=== PATIENT | female | born 1990 | race African-American/Black ===

== ENCOUNTER 2016-09-05 13:43 | Emergency (ER) | payer OTHER ==
[~2016-09-05 13:43] MED LIST: CALNTAB PO; MACR100C2 PO
--- NOTE | 2016-09-05 14:05 | PD ---
HPI Date Seen: Sep 05, 2016 (Beni Hood MD R1) Travel History International Travel<30 Days: No Contact w/Intl Traveler<30Days: No Known Affected Area: No (Beni Hood MD R1) History of Present Illness HPI Patient is a 26 year old with no prior care presents to OB ED with reports of LOF attila. 1 hour ago. She was seen here at [facility] on 04/27/2016, had a TVUS and was diagnosed with an IUP at that time dating at attila. 6 weeks. She was also treated at that time for asymptomatic bacteriuria urine culture growing E. coli she was given one dose of IV Rocephin and sent home with a 5- day course of Macrobid. She reports +FM. Reports irregular contractions. Denies urinary symptoms. She also does not have a primary care physician. She is unsure of her LMP, she believes it to be sometime in January of last year. Para: 2 : 3 (Beni Hood MD R1) History Past Medical History Medical History: Denies Significant Hx (Beni Hood MD R1) Obstetric History Obstetric History Per EMR, prior CSx1 in 2012, 39 weeks gestation, emergent performed due to bradycardia 2nd ending in 07/22/2015 delivered at term (Beni Hood MD R1) Past Surgical History Narrative Surgical Hx of CSx1 Cholecystectomy 02/2015 (Beni Hood MD R1) Family History Family History: Negative (Beni Hood MD) Social History Alcohol Use: No Tobacco Use: No Substance Abuse: Yes (Admits to marijuana use almost daily throughout ) (Beni Hood MD R1) Allergies-Medications (Allergen,Severity, Reaction): Coded Allergies: No Known Allergies (Verified , 04/26/16) Home Meds Active Scripts Nitrofurantoin Monohydrate Macrocrystals (Macrobid)100 Mg [id number] Mg PO BID 5 Days Ref 0 Prov:En Burton MD 04/27/16 Vitamin (Calna)1 Tab Tab1 Tab PO DAILY 90 Days Ref 3 Prov:En Burton MD 04/27/16 Review of Systems Except as stated in HPI: all other systems reviewed are Neg (Beni Hood MD R1) Physical Exam Narrative GENERAL: Well-nourished, well-developed patient. SKIN: Warm and dry. HEAD: Normocephalic and atraumatic. EYES: No scleral icterus. No injection or drainage. ENT: No nasal drainage noted. Mucous membranes pink. Airway patent. NECK: Supple, trachea midline. No JVD. CARDIOVASCULAR: Regular rate and rhythm without murmurs, gallops, or rubs. RESPIRATORY: Breath sounds equal bilaterally. No accessory muscle use. ABDOMEN/GI: Abdomen soft, non-tender, bowel sounds present, no rebound, no guarding Gravid to 24 weeks size GENITOURINARY: External Genitalia: [-] Cervix: [-] Dilatation: [-] Effacement: [-] Station: [-] Presentation: [-] Membranes: [-] Uterine Contractions: [-] FHT's: 10-minute strip reviewed Category: I Baseline: 150s Reactive: yes Variability: mod Decels: none EXTREMITIES: No cyanosis or edema. BACK: Nontender without obvious deformity. No CVA tenderness. NEUROLOGICAL: Awake and alert. Motor and sensory grossly within normal limits. Normal speech. (Beni Hood MD R1) Data Data Vital Signs Reviewed: Yes (Beni Hood MD R1) [facility] Medical Record Reviewed: Yes Plan Patient is a 26 year old with no prior care presented with report of LOF now found to be at 24/1 weeks gestation based on ultrasound obtained today. 1. IUP - Ultrasound obtained at OB diagnostics showing cervical length of 3.5 cm, posterior placenta, efw of 700 gm, GA at 24/1 weeks with an MARELY of 12/25/2016 - Category I tracing - No contractions on tocometer - Cervix is closed - Amnisure negative - UA shows moderate leukocyte esterase, negative nitrite, few bacteria, 30 protein, trace ketones, neg glucose, culture not indicated - Urine toxicology screen is positive for THC, extended screen still pending - Wet prep negative - GC & chlamydia obtained - labs ordered, pending - Patient is instructed to follow up at [facility] for continued care sdw Dr. Myers (Beni Hood MD R1) Attending Attestation The exam, history, and the medical decision-making described in the above note were completed with the assistance of the resident provider. I reviewed and agree with the findings presented. I attest that I had a [id number] encounter with the patient on the same day, and personally performed and documented my assessment and findings in the medical record. (Sylwia Myers MD) Diagnosis Diagnosis: Primary Impression: Intrauterine Disposition: 01 DISCHARGE HOME Condition: Stable Patient Instructions: General Instructions Beni Hood MD R1 Sep 05, 2016 14:05 Sylwia Myers MD Sep 05, 2016 16:54
[2016-09-05 14:20] VITALS: BP 122/63; PULSE 99
[2016-09-05 14:23] VITALS: RESP 20
[2016-09-05 14:30] VITALS: TEMP 97.9
[2016-09-05 15:43] LABS: BACTERIA, URINE FEW /hpf; BLOOD, URINE NEG (NEG); COMMENT (UR) CULT NOT INDICATED; CULTURE IF INDICATED CULT NOT INDICATED; GLUCOSE,URINE NEG (NEG); KETONE, URINE TRACE mg/dL (NEG); MUCUS URINE MOD /lpf (OCC); NITRITE,URINE NEG (NEG); PH, URINE 6.5 (5.0-8.5); SQUAMOUS EPITHELIAL CELL URINE 20 /hpf (0-5); URINE COLOR YELLOW (YELLW/STRAW)
[2016-09-05 15:46] LABS: AMPHETAMINE, URINE NEG (NEG); BARBITURATES, URINE NEG (NEG); COCAINE, URINE NEG (NEG)
[2016-09-05 16:55] LABS: HEMATOCRIT 31.8 % (35.0-46.0); MEAN CELL VOLUME 82.9 FL (80.0-100.0); MEAN CORPUSCULAR HEMOGLOBIN 27.8 PG (27.0-34.0); MEAN CORPUSCULAR HGB CONC 33.5 % (32.0-36.0); PLATELET COUNT 200 TH/MM3 (150-450); RED BLOOD COUNT 3.84 MIL/MM3 (4.00-5.30); RED CELL DISTRIBUTION WIDTH 15.4 % (11.6-17.2); REVIEW FLAG FINAL; WHITE BLOOD COUNT 8.6 TH/MM3 (4.0-11.0)
[2016-09-05 17:04] LABS: BICARBONATE 23.2 MEQ/L (21.0-32.0); POTASSIUM 3.5 MEQ/L (3.5-5.1)
[2016-09-05 17:24] LABS: RUBELLA IGG ANTIBODY 12.7 IU/mL (10.0-500.0); RUBELLA STATUS IMMUNE (IMMUNE)
[2016-09-05 18:53] LABS: CHLAMYDIA PCR DETECTED (NOT DETECT); NEISSERIA PCR NOT DETECTED (NOT DETECT)
[2016-09-06 09:44] LABS: RAPID PLASMA REAGIN SCREEN NON-REACTIVE (NON-REACTVE)
[2016-09-11 12:57] LABS: ECSTASY (MDMA) UR NEG (NEG); HEROIN (6-ACETYLMORPHINE) UR NEG (NEG); OBMETHADONE UR NEG (NEG); PHENCYCLIDINE URINE NEG (NEG)
[2016-09-11 12:58] LABS: BATH SALTS (MDPV) UR NEG (NEG); K2 SPICE UR NEG (NEG); OXYCODONE (PERCODAN) NEG (NEG)
== END 2016-09-05 17:08 | disposition home or self-care (01) ==
LOC: HOBED 13:43
DX: O26.899 Other specified pregnancy related conditions, unspecified trimester (principal); N85.8 Other specified noninflammatory disorders of uterus; F12.10 Cannabis abuse, uncomplicated
CPT/HCPCS: 76805; 80048; 80074; 80307; 81001; 84112; 85027; 86592; 86703; 86762; 87210; 87491; 87591; 99284; G0481

== ENCOUNTER 2016-11-13 14:56 | Emergency (ER) | payer OTHER ==
[2016-11-13] VITALS (20 sets, daily range): BP systolic 101; BP diastolic 66; PULSE 98–126; RESP 16; TEMP 98.5
[~2016-11-13] VITALS: Ht 152.4 cm; Wt 68.0 kg
--- NOTE | 2016-11-13 15:08 | PD ---
HPI Chief Complaint Contractions. Date Seen: Nov 13, 2016 Travel History International Travel<30 Days: No Contact w/Intl Traveler<30Days: No History of Present Illness HPI Patient is a 26 year old at 34-0/7 weeks gestation based on second trimester US who presents today with contractions. Contractions started at 5: 30 this morning and have become progressively more frequent and strong. She now notes contractions every 1-3 minutes lasting 30 seconds. She denies any vaginal bleeding or discharge. No gush or leaking of fluid. Positive movement. No care, but she was seen in the [facility] ED twice during this . She has a history of marijuana use and states that she last smoke marijuana yesterday. History Past Medical History Medical History: Denies Significant Hx Obstetric History Obstetric History s/p x 1 and x 1 Past Surgical History Narrative Surgical Cholecystectomy Family History Family History: Negative Social History Alcohol Use: No Tobacco Use: No Substance Abuse: Yes (patient denies, but UDS from August significant for marijuana use) Allergies-Medications (Allergen,Severity, Reaction): Coded Allergies: No Known Allergies (Verified , 04/26/16) Home Meds Discontinued Scripts Nitrofurantoin Monohydrate Macrocrystals (Macrobid)100 Mg [id number] Mg PO BID 5 Days Ref 0 Prov:En Burton MD 04/27/16 Vitamin (Calna)1 Tab Tab1 Tab PO DAILY 90 Days Ref 3 Prov:En Burton MD 04/27/16 Review of Systems Except as stated in HPI: all other systems reviewed are Neg General / Constitutional: No: Fever, Chills Eyes: No: Visual changes HENT: No: Headaches Cardiovascular: No: Chest Pain or Discomfort Respiratory: No: Short of Breath Gastrointestinal: Abdominal Pain Genitourinary: Pelvic Pain, No: Discharge, Vaginal Bleeding Musculoskeletal: No: Edema Neurologic: No: Headache Psychiatric: Substance Abuse Physical Exam Narrative GENERAL: Well-nourished, well-developed patient. SKIN: Warm and dry. HEAD: Normocephalic and atraumatic. EYES: No scleral icterus. No injection or drainage. ENT: No nasal drainage noted. Mucous membranes pink. Airway patent. NECK: Supple, trachea midline. No JVD. CARDIOVASCULAR: Regular rate and rhythm without murmurs, gallops, or rubs. RESPIRATORY: Breath sounds equal bilaterally. No accessory muscle use. ABDOMEN/GI: Abdomen soft, non-tender, bowel sounds present, no rebound, no guarding Gravid to 34 weeks size GENITOURINARY: External Genitalia: intact and normal in appearance BUS glands: normal Cervix: midposition Dilatation: 2 Effacement: 50 Station: -3 Presentation: vertex Membranes: intact Uterine Contractions: q4-6min FHT's: Category: I Baseline: 155 Reactive: + Variability: moderate Decels: none EXTREMITIES: No cyanosis or edema. BACK: Nontender without obvious deformity. No CVA tenderness. NEUROLOGICAL: Awake and alert. Motor and sensory grossly within normal limits. Normal speech. Data Data Vital Signs Reviewed: Yes Orders Vital Signs (Adult) .ON ADMISSION (11/13/16 15:05) ^ Labor Status (11/13/16 15:05) ^ Non Stress Test (11/13/16 15:05) ^ Hydration (11/13/16 15:05) MDM Medical Record Reviewed: Yes Narrative Course / MDM 26 year old at 34-0/7 weeks gestation. 1. IUP- Category I tracing, reassuring. 2. contractions- monitor toco/fht. Tocolysis with Procardia ( Terbutaline contraindicated with maternal tachycardia) and IV fluids. 3. No care- labs drawn during August ED visit. Patient was positive for Chlamydia in August, but states she was never treated. Will treat with Rocephin and Azithromycin and repeat urine GC and chlamydia PCR. 4. Somnolence- Vitals stable. Obtain CBC, CMP, UA, UDS. dw Dr. Massey and Dr. Ruth Gaitan R1 Addendum: UA significant for UTI, will treat with Bactrim DS BID x 3 days. CBC significant for Hgb 10.4, will treat with Ferrous Fumarate 325mg PO BID UDS, CMP wnl Contractions have subsided with Procardia. Patient will be discharged to home. Follow-up with the [facility], Dr. Jesus. Diagnosis Diagnosis: Primary Impression: Acute cystitis during in third trimester Additional Impression: contractions Disposition: DISCHARGE HOME Condition: Stable Scripts Ferrous Fumarate 324 Mg [id number] Mg PO BID #60 TAB Ref 3 Prov:Yisel Jesus MD R2 11/13/16 Sulfamethoxazole-Trimethoprim 800-160 Mg Tab1 Tab PO BID #6 TAB Ref 0 Prov:Yisel Jesus MD R2 11/13/16 Yisel Jesus MD R2 Nov 13, 2016 15:08
[2016-11-13] MEDS ORDERED: SODIUM CHLORIDE 0.9% FLUSH 10 ML FLUSH IV FLUSH PRN (15:30)
[2016-11-13] MEDS ORDERED: TERBUTALINE INJ 1 MG/ML AMP SQ PRN (15:30)
[2016-11-13] MEDS ORDERED: LACTATED RINGER'S 1000 ML INJ 1,000 ML IV SCH (15:45)
[2016-11-13] MEDS ORDERED: cefTRIAXone 250 MG VIAL IM ONE (16:00)
[2016-11-13] MEDS: NIFEdipine 10 MG CAP PO SCH ×4 (16:00→17:00)
[2016-11-13] MEDS ORDERED: AZITHROMYCIN PWD FOR SUSP 1 GM PACKET PO ONE (16:00)
[2016-11-13] MEDS ORDERED: LIDOCAINE HCL 1% PF 5 ML AMPULE ONE (16:04)
[2016-11-13 16:07] LABS: AUTOMATED NEUTROPHIL # 6.3 TH/MM3 (1.8-7.7); BASOPHIL % 0.5 % (0.0-2.0); EOSINOPHIL % 0.6 % (0.0-4.0); HEMATOCRIT 31.6 % (35.0-46.0); HEMO FLAGS DIFF FINAL; LYMPH % 12.5 % (9.0-44.0); LYMPHOCYTE # 1.1 TH/MM3 (1.0-4.8); MEAN CELL VOLUME 80.4 FL (80.0-100.0); MEAN CORPUSCULAR HEMOGLOBIN 26.4 PG (27.0-34.0); MEAN CORPUSCULAR HGB CONC 32.8 % (32.0-36.0); MONO % 13.8 % (0.0-8.0); NEUT % 72.6 % (16.0-70.0); PLATELET COUNT 185 TH/MM3 (150-450); RED BLOOD COUNT 3.93 MIL/MM3 (4.00-5.30); RED CELL DISTRIBUTION WIDTH 14.3 % (11.6-17.2); WHITE BLOOD COUNT 8.6 TH/MM3 (4.0-11.0)
[2016-11-13 16:27] LABS: BACTERIA, URINE MOD /hpf; BLOOD, URINE NEG (NEG); GLUCOSE,URINE NEG (NEG); HYALINE CAST, URINE 1 /lpf (RARE); KETONE, URINE 150 mg/dL (NEG); MUCUS URINE MOD /lpf (OCC); NITRITE,URINE NEG (NEG); SQUAMOUS EPITHELIAL CELL URINE 19 /hpf (0-5); URINE COLOR YELLOW (YELLW/STRAW)
[2016-11-13 16:31] LABS: AMPHETAMINE, URINE NEG (NEG); BARBITURATES, URINE NEG (NEG); COCAINE, URINE NEG (NEG); COMMENT (UR) CATH-CULTURE IND; CULTURE IF INDICATED CATH CULTURE IND
[2016-11-13 16:32] LABS: ALT (GPT) 15 U/L (10-53); ANION GAP 12 MEQ/L (5-15); AST (GOT) 19 U/L (15-37); BICARBONATE 22.4 MEQ/L (21.0-32.0); BLOOD UREA NITROGEN 7 MG/DL (7-18); CHLORIDE 103 MEQ/L (98-107); GLOMERULAR FILTRATION RATE 149 ML/MIN (>89); POTASSIUM 3.8 MEQ/L (3.5-5.1); SODIUM (NA) 137 MEQ/L (136-145)
[2016-11-13 16:35] LABS: ALKALINE PHOSPHATASE 189 U/L (45-117); TOTAL BILIRUBIN ADULT 0.3 MG/DL (0.2-1.0)
[2016-11-13] MEDS ORDERED: SULF1TAB23 PO (16:50)
[2016-11-13] MEDS ORDERED: FERR324T8 PO (16:50)
[2016-11-13] MEDS ORDERED: ONDANSETRON ODT 4 MG TAB PO ONE (17:45)
[2016-11-13 17:55] LABS: CHLAMYDIA PCR DETECTED (NOT DETECT); NEISSERIA PCR NOT DETECTED (NOT DETECT)
[2016-11-13] MEDS ORDERED: PROCHLORPERAZINE INJ 10 MG/2 ML VIAL IM ONE (18:00)
[2016-11-13] MEDS ORDERED: SODIUM CHLORIDE 0.9% FLUSH 10 ML FLUSH IV FLUSH SCH (21:00)
[2016-11-19 10:19] LABS: BATH SALTS (MDPV) UR NEG (NEG); ECSTASY (MDMA) UR NEG (NEG); GABAPENTIN UR NEG (NEG); HEROIN (6-ACETYLMORPHINE) UR NEG (NEG); HYDROMORPHONE U NEG (NEG); K2 SPICE UR NEG (NEG); OBMETHADONE UR NEG (NEG); OXYCODONE (PERCODAN) NEG (NEG); PHENCYCLIDINE URINE NEG (NEG)
== END 2016-11-13 18:18 | disposition home or self-care (01) ==
LOC: HOBED 14:56
DX: O23.13 Infections of bladder in pregnancy, third trimester (principal); O62.9 Abnormality of forces of labor, unspecified; O09.33 Supervision of pregnancy with insufficient antenatal care, third trimester; Z3A.34 34 weeks gestation of pregnancy
CPT/HCPCS: 59025; 80053; 80307; 81001; 85025; 86850; 86900; 86901; 87086; 87491; 87591; 96360; 96372; 99284; G0481; J0696; J0780; J7120

== ENCOUNTER 2016-11-29 18:23 | Emergency (ER) | payer OTHER ==
[~2016-11-29 18:23] MED LIST changes: -CALNTAB PO; +FERR324T8 PO; -MACR100C2 PO; +SULF1TAB23 PO
[2016-11-29] MEDS ORDERED: LACTATED RINGER'S 1000 ML INJ 1,000 ML IV SCH (19:08)
[2016-11-29] MEDS ORDERED: TERBUTALINE INJ 1 MG/ML AMP SQ PRN (19:15)
[2016-11-29] MEDS ORDERED: ONDANSETRON HCL 4 MG/2 ML VIAL IV ONE (19:15)
--- NOTE | 2016-11-29 19:23 | PD ---
HPI Chief Complaint Contraction pain Date Seen: Nov 29, 2016 Travel History International Travel<30 Days: No Contact w/Intl Traveler<30Days: No Known Affected Area: No History of Present Illness HPI The patient is 26-year-old black female previous at 36 weeks by 24 week ultrasound who has very limited care presenting brought in by the ambulance for contractions. She denies bleeding or ruptured membranes. Baby is active. heart rate tracing is reactive. And she is wayne irregularly. We have the copy of the 24 week ultrasound done at the end of August here and also that time labs drawn which was also normal limits her chlamydia was positive and that was treated. Para: 2 : 3 History Obstetric History Obstetric History 1 and 1 delivery She has no care with this baby only the ER visits and ultrasound done through [facility] Past Surgical History Narrative Surgical 1 Social History Alcohol Use: No Tobacco Use: No Substance Abuse: No Allergies-Medications (Allergen,Severity, Reaction): Coded Allergies: No Known Allergies (Verified , 04/26/16) Home Meds Active Scripts Ferrous Fumarate 324 Mg [id number] Mg PO BID #60 TAB Ref 3 Prov:Yisel Jesus MD R2 11/13/16 Sulfamethoxazole-Trimethoprim 800-160 Mg Tab1 Tab PO BID #6 TAB Ref 0 Prov:Yisel Jesus MD R2 11/13/16 Review of Systems General / Constitutional: No: Fever, Weight Gain, Chills, Other Eyes: No: Diploplia, Blurred Vision, Visual changes, Pain, Photophobia HENT: No: Headaches, Vertigo, Lightheadedness Cardiovascular: No: Irregular Rhythm, Chest Pain or Discomfort, Palpitations, Tachycardia, Syncope, Varicosities, Edema, Cyanosis Respiratory: No: Cough, Short of Breath, Other Gastrointestinal: Abdominal Pain, No: Nausea, Vomiting, Diarrhea Genitourinary: No: Decreased Urinary Output, Oliguria Musculoskeletal: No: Limited ROM, Weakness, Cramping, Edema, Pain Skin: No Rash, No Itching, No Dryness, No Lumps, No Change in Pigmentation, No Change in Nails, No Alopecia, No Lesions Neurologic: No: Weakness, Dizziness, Syncope, Focal Abnormalities, Coordination Problem, Headache, Slurred Speech, Seizures Psychiatric: No: Depression, Suicidal Ideations, Homicidal Ideation Endocrine: No: Heat Intolerance, Cold Intolerance, Polydipsia, Polyuria, Other Physical Exam Narrative GENERAL: Well-nourished, well-developed patient. SKIN: Warm and dry. HEAD: Normocephalic and atraumatic. EYES: No scleral icterus. No injection or drainage. ENT: No nasal drainage noted. Mucous membranes pink. Airway patent. NECK: Supple, trachea midline. No JVD. CARDIOVASCULAR: Regular rate and rhythm without murmurs, gallops, or rubs. RESPIRATORY: Breath sounds equal bilaterally. No accessory muscle use. BREASTS: Bilateral exam showed no masses , no retractions, no nipple discharge. ABDOMEN/GI: Abdomen soft, non-tender, bowel sounds present, no rebound, no guarding Gravid to [36-] weeks size Fundal Height: [35-] GENITOURINARY: External Genitalia: intact and normal in appearance BUS glands: [-] Cervix: [-] Dilatation: [1-2-] Effacement: [-70] Station: [-3] Presentation: [-vtx] Membranes: [intact ] Uterine Contractions: [Irregular-] FHT's: Category: [1-] Baseline: [133-] Reactive: [-yes] Variability: [-mod] Decels: [-0] EXTREMITIES: No cyanosis or edema. BACK: Nontender without obvious deformity. No CVA tenderness. NEUROLOGICAL: Awake and alert. Motor and sensory grossly within normal limits. Five out of 5 muscle strength in all muscle groups. Normal speech. Data Data Orders Vital Signs (Adult) .ON ADMISSION (11/29/16 19:08) ^ Labor Status (11/29/16 19:08) Urinalysis - C+S If Indicated (11/29/16 19:08) Lactated Ringer's 1000 Ml Inj (Lr 1000 M (11/29/16 19:08) Ondansetron Inj (Zofran Inj) (11/29/16 19:15) Terbutaline Inj (Brethine Inj) (11/29/16 19:15) Fentanyl Inj (Fentanyl Inj) (11/29/16 19:15) MDM Interpretation(s) This patient is 26-year-old black female 36 weeks previous and previous who presents combining of contractions. She was brought in by EMS and has been on the monitor here she's having irregular contractions. Her membranes are intact she's had no bleeding cervix is 1-/ -3 Plan Plan to give patient a liter of IV fluid subcutaneous terbutaline and 1 dose of fentanyl IV to see if this can tocolyse what little contractions we are seeing. She is encouraged at home to increase bedrest use Tylenol liberally drink plenty of fluids and use a heating pad or hot bath for comfort's. She is planning a repeat delivery Diagnosis Diagnosis: Primary Impression: contractions Additional Impression: Previous section Disposition: 01 DISCHARGE HOME Condition: Stable Dainel Massey II, MD Nov 29, 2016 19:23
[2016-11-29 19:35] LABS: BLOOD, URINE NEG (NEG); CALCIUM OXALATE CRYSTALS,URINE MANY /hpf; COMMENT (UR) CULT NOT INDICATED; CULTURE IF INDICATED CULT NOT INDICATED; GLUCOSE,URINE NEG (NEG); KETONE, URINE TRACE mg/dL (NEG); MUCUS URINE MOD /lpf (OCC); NITRITE,URINE NEG (NEG); SQUAMOUS EPITHELIAL CELL URINE 6 /hpf (0-5); URINE COLOR YELLOW (YELLW/STRAW)
[2016-11-29 20:19] VITALS: RESP 18
== END 2016-11-29 21:00 | disposition home or self-care (01) ==
LOC: HOBED 18:23
DX: O60.03 Preterm labor without delivery, third trimester (principal); O34.219 Maternal care for unspecified type scar from previous cesarean delivery; Z3A.36 36 weeks gestation of pregnancy
CPT/HCPCS: 81001; 96372; 96374; 96375; 99284; J2405; J3010; J3105; J7120

== ENCOUNTER 2016-12-21 11:05 | Inpatient (IN) | payer OTHER ==
[2016-12-21] VITALS (11 sets, daily range): BP systolic 99–123; BP diastolic 68–81; PULSE 56–78; RESP 16–20; TEMP 97.6–97.9
[2016-12-21] MEDS ORDERED: LACTATED RINGER'S 1000 ML INJ 1,000 ML IV PRN (11:17)
[2016-12-21] MEDS ORDERED: LACTATED RINGER'S 1000 ML INJ 1,000 ML IV SCH (11:17)
[2016-12-21] MEDS ORDERED: SODIUM CHLORID 0.9% 500 ML INJ 500 ML IV PRN (11:30)
[2016-12-21] MEDS ORDERED: OXYTOCIN 30 UNITS-500ML PREMIX 500 ML IV ONE (11:30)
[2016-12-21] MEDS ORDERED: CITRIC ACID-SODIUM CITRATE LIQ 30 ML UDC PO SCH (11:30)
[2016-12-21] MEDS ORDERED: LIDOCAINE HCL 1% 50 ML VIAL INFIL PRN (11:30)
[2016-12-21] MEDS ORDERED: LIDOCAINE HCL 1% 50 ML VIAL I-DERMAL PRN (11:30)
[2016-12-21] MEDS ORDERED: MINERAL OIL 10 ML VIAL TOPICAL PRN (11:30)
[2016-12-21] MEDS ORDERED: SODIUM CHLOR 0.9% 1000 ML INJ 1,000 ML IV PRN (11:37)
[2016-12-21 11:46] LABS: AUTOMATED NEUTROPHIL # 5.1 TH/MM3 (1.8-7.7); BASOPHIL % 0.4 % (0.0-2.0); EOSINOPHIL % 0.5 % (0.0-4.0); HEMATOCRIT 36.1 % (35.0-46.0); HEMO FLAGS DIFF FINAL; LYMPHOCYTE # 2.5 TH/MM3 (1.0-4.8); MEAN CELL VOLUME 80.2 FL (80.0-100.0); MEAN CORPUSCULAR HEMOGLOBIN 24.5 PG (27.0-34.0); MEAN CORPUSCULAR HGB CONC 30.6 % (32.0-36.0); MONO % 8.7 % (0.0-8.0); NEUT % 60.4 % (16.0-70.0); PLATELET COUNT 202 TH/MM3 (150-450); RED BLOOD COUNT 4.51 MIL/MM3 (4.00-5.30); RED CELL DISTRIBUTION WIDTH 16.5 % (11.6-17.2); WHITE BLOOD COUNT 8.5 TH/MM3 (4.0-11.0)
[2016-12-21 11:57] LABS: BACTERIA, URINE OCC /hpf; BLOOD, URINE SMALL (NEG); COMMENT (UR) CULTURE INDICATED; CULTURE IF INDICATED CULTURE INDICATED; GLUCOSE,URINE NEG (NEG); KETONE, URINE NEG (NEG); MUCUS URINE FEW /lpf (OCC); NITRITE,URINE NEG (NEG); SQUAMOUS EPITHELIAL CELL URINE 4 /hpf (0-5); URINE COLOR YELLOW (YELLW/STRAW)
--- NOTE | 2016-12-21 12:16 | HHI.HP ---
History & Physical H&P HPI Chief Complaint Labor Date Seen: Dec 21, 2016 Travel History International Travel<30 Days: No Contact w/Intl Traveler<30Days: No Known Affected Area: No History of Present Illness HPI 26YO black female previous at 39 weeks by 24 week ultrasound who has very limited care presenting brought in by the ambulance for contractions and 9 cm dilated. She denies bleeding or ruptured membranes. Baby is active. heart rate tracing is reactive. And she is wayne irregularly. We have the copy of the 24 week ultrasound done at the end of August here and also that time labs drawn which was also normal limits her chlamydia was positive and that was treated. Para: 2 : 3 History Obstetric History Obstetric History 1 and 1 delivery She has no care with this baby only the ER visits and ultrasound done through [facility] Past Surgical History Narrative Surgical 1 Social History Alcohol Use: No Tobacco Use: No Substance Abuse: No Allergies-Medications (Allergen,Severity, Reaction): Coded Allergies: No Known Allergies (Verified , 04/26/16) Home Meds Active Scripts Ferrous Fumarate 324 Mg [id number] Mg PO BID #60 TAB Ref 3 Prov:Yisel Jesus MD R2 11/13/16 Review of Systems General / Constitutional: No: Fever, Weight Gain, Chills, Other; yes: pain and contractions Eyes: No: Diploplia, Blurred Vision, Visual changes, Pain, Photophobia HENT: No: Headaches, Vertigo, Lightheadedness Cardiovascular: No: Irregular Rhythm, Chest Pain or Discomfort, Palpitations, Tachycardia, Syncope, Varicosities, Edema, Cyanosis Respiratory: No: Cough, Short of Breath, Other Gastrointestinal: Abdominal Pain, No: Nausea, Vomiting, Diarrhea Genitourinary: No: Decreased Urinary Output, Oliguria Musculoskeletal: No: Limited ROM, Weakness, Cramping, Edema, Pain Skin: No Rash, No Itching, No Dryness, No Lumps, No Change in Pigmentation, No Change in Nails, No Alopecia, No Lesions Neurologic: No: Weakness, Dizziness, Syncope, Focal Abnormalities, Coordination Problem, Headache, Slurred Speech, Seizures Psychiatric: No: Depression, Suicidal Ideations, Homicidal Ideation Endocrine: No: Heat Intolerance, Cold Intolerance, Polydipsia, Polyuria, Other Physical Exam Narrative GENERAL: Well-nourished, well-developed patient. SKIN: Warm and dry. HEAD: Normocephalic and atraumatic. EYES: No scleral icterus. No injection or drainage. ENT: No nasal drainage noted. Mucous membranes pink. Airway patent. NECK: Supple, trachea midline. CARDIOVASCULAR: RRR without murmur, gallop, or rub. RESPIRATORY: Breath sounds equal bilaterally w/no increased WOB. No accessory muscle use. ABDOMEN/GI: Abdomen soft, non-tender, bowel sounds present, no rebound, no guarding Gravid to [36-] weeks size Fundal Height: [35-] GENITOURINARY: External Genitalia: intact and normal in appearance Cervix: [anterior] Dilatation: 8-9 Effacement: 100 Station: 0 Presentation: vertex Membranes: intact Uterine Contractions: Irregular- FHT's: Category: [1-] Baseline: [135 with accels to 155] Reactive: [-yes] Variability: [-mod] Decels: [-0] EXTREMITIES: No cyanosis or edema. NEUROLOGICAL: Awake and alert. Motor and sensory grossly within normal limits. Normal speech. Data Data Orders Vital Signs (Adult) .ON ADMISSION (12/21/16 11:07) ^ Labor Status (12/21/16 11:07) ^ Non Stress Test (12/21/16 11:07) Vital Signs (Adult) .ON ADMISSION (12/21/16 11:11) ^ Labor Status (12/21/16 11:11) Urinalysis - C+S If Indicated (12/21/16 11:11) Gc And Chlamydia Pcr (12/21/16 11:11) Group B Strep Pcr (Rapid) (12/21/16 11:11) Admit To Inpatient (12/21/16 ) Vital Signs (Adult) .Per protocol (12/21/16 11:17) Activity Oob Ad Jena (12/21/16 11:17) Heart (12/21/16 11:17) Amnioinfusion (12/21/16 11:17) Urinary Catheter Management .ONCE (12/21/16 11:17) Diet Liquid (12/21/16 Lunch) Lactated Ringer's 1000 Ml Inj (Lr 1000 M (12/21/16 11:17) Lactated Ringer's 1000 Ml Inj (Lr 1000 M (12/21/16 11:17) Sodium Chlorid 0.9% 500 Ml Inj (Ns 500 M (12/21/16 11:30) Sodium Chlor 0.9% 1000 Ml Inj (Ns 1000 M (12/21/16 11:37) Lidocaine 1% Inj (50 Ml) (Xylocaine 1% I (12/21/16 11:30) Citric Acid-Sodium Citrate Liq (Bicitra (12/21/16 11:30) Fentanyl Inj (Fentanyl Inj) (12/21/16 11:30) Fentanyl Inj (Fentanyl Inj) (12/21/16 11:30) Complete Blood Count With Diff (12/21/16 11:17) Hold Clot (12/21/16 11:17) Abo/Rh Blood Type (12/21/16 11:) Resp Oxygen Non Rebreathe Mask (12/21/16 ) ^ Epidural / Intrathecal Infus (12/21/16 11:17) Oxytocin 30 Units-500ml Premix (Pitocin (12/21/16 11:30) Lidocaine 1% Inj (50 Ml) (Xylocaine 1% I (12/21/16 11:30) Light Mineral Oil (Muri-Lube Oil) (12/21/16 11:30) Inpatient Certification (12/21/16 ) A/P Interpretation(s) 26YO black female 39 weeks previous and previous who presents in labor with contractions and 8-9cm dilated/100%/0station/vertex and limited PNC. She was brought in by EMS and has been on the monitor here she's having irregular contractions. Her membranes are intact. She is planning a repeat delivery 1. IUP - Category 1 tracing - Irregular contractions 3-5 minutes apart - Admit for L&D - IVF - Pain control - Trial of labor -Treated for Chlamydia previously - GC and Chlamydia PCR, UA (Francois Mcdonough MD R1) H&P 26 yo @ 39w3d by 24 week US (6 weeks us documented viability but no EDC given). No care this . Patient was seen in the [facility] several times and labs and US were obtained. She was treated for 2 UTIs this and Chlamydia twice with documented treatment. She had a previous C- section and . She presented to the [facility] by EMS today with c/o onset of UC at 7am. No ROM, LOF, VB. +FM. Upon evaluation she was 8-9cm with bulging membranes. An US confirmed vertex presentation. FHT were CAT I. She desires a BRITTANEY. The risks of uterine rupture were reviewed including emergency c- section, bleeding, additional surgery, injury. A rapid GBS was obtained and a JOSE DE JESUS for chlamydia. UA sent. Patient was seen and evaluated with Dr. Coyne and Dr. Mcdonough. (Myra Delaney MD) Francois Mcdonough MD R1 Dec 21, 2016 12:16 Myra Delnaey MD Dec 21, 2016 12:29
[2016-12-21] MEDS ORDERED: SODIUM CHLORIDE 0.9% FLUSH 10 ML FLUSH IV FLUSH PRN (12:30)
[2016-12-21] MEDS ORDERED: WITCH HAZEL 50%/GLYCERIN 12.5% 40 PAD JAR TOPICAL PRN (12:30)
[2016-12-21] MEDS ORDERED: ONDANSETRON ODT 4 MG TAB PO PRN (12:30)
[2016-12-21] MEDS ORDERED: ACETAMINOPHEN 325 MG TAB PO PRN (12:30)
[2016-12-21] MEDS ORDERED: SODIUM CHLORIDE 0.9% FLUSH 10 ML FLUSH IV FLUSH SCH (12:30)
[2016-12-21] MEDS ORDERED: ALUMINUM/MAGNESIUM/SIMETH 30 ML CUP PO PRN (12:30)
[2016-12-21] MEDS ORDERED: DOCUSATE SODIUM 50 MG/SENNA 8.6 MG TAB PO PRN (12:30)
[2016-12-21] MEDS ORDERED: ZOLPIDEM TARTRATE 5 MG TAB PO PRN (12:30)
[2016-12-21] MEDS ORDERED: BENZOCAINE 20% TOPICAL SPRAY 60 ML CAN TOPICAL PRN (12:30)
--- NOTE | 2016-12-21 12:32 | PD.OB.DELI ---
Delivery Date: Dec 21, 2016 Anesthesia: None Episiotomy: None Vaginal Delivery: Normal Presentation: Occiput anterior Nuchal Cord: None Delayed cord clamping (45 sec): Yes Infant: Female One Minute : 9 Five Minute : 9 Weight: 2825g Placenta: Spontaneous delivery Laceration: No lacerations Additional Information 26 yo @ 39w3d. Limited care. Presented at 8-9cm. Desired BRITTANEY. CAT I FHT. SROM with clear fluid at time of delivery. Uncomplicated . Placenta spontaneous and intact, grossly normal but small, sent to pathology. No lacerations. EBL 100ml. Myra Delaney MD Dec 21, 2016 12:32
[2016-12-21 13:35] LABS: GROUP B STREP PCR NEGATIVE (NEGATIVE)
[2016-12-21 14:24] LABS: CHLAMYDIA PCR NOT DETECTED (NOT DETECT); NEISSERIA PCR NOT DETECTED (NOT DETECT)
[2016-12-21] MEDS ORDERED: DIPHTH/TETANUS/ACEL PERTUSSIS (BOOSTER) 0.5 ML VIAL/PFS IM ONE (16:00)
[2016-12-21] MEDS ORDERED: MEASLES, MUMPS, RUBELLA VACCINE 0.5 ML VIAL SQ ONE (16:00)
[2016-12-21] MEDS: NITROFURANTOIN MONOHYD MACROCR 100 MG CAP PO SCH (18:29)
[2016-12-21] MEDS: IBUPROFEN 600 MG TAB PO PRN (23:33)
[2016-12-21 23:56] LABS: AMPHETAMINE, URINE NEG (NEG); BARBITURATES, URINE NEG (NEG); COCAINE, URINE NEG (NEG)
[2016-12-22 08:00] VITALS: BP 121/74; PULSE 53; RESP 17; TEMP 98.2
--- NOTE | 2016-12-22 08:44 | HHI.OB ---
Subjective Post Day: 1 Remarks 26 year old female s/p NVD at 39 wks gestation, PPD 1. AFVSS. Patient reports she is feeling well. Bleeding is decreasing and pain is well- controlled. She is breast and formula feeding and bonding well with baby. Ambulating without difficulties. She is tolerating a diet without nausea or vomiting. She has not had a bowel movement. She has passed gas. Denies chest pain, dysuria, shortness of breath, or calf pain. (Pepito Coyne MD R1) Objective Vitals/I&O Vital Signs Date Time Temp Pulse Resp B/P Pulse Ox O2 Delivery O2 Flow Rate FiO2 12/22/16 08:00 98.2 53 17 121/74 12/21/16 19:30 60 117/76 12/21/16 19:30 97.6 18 12/21/16 14:45 97.9 57 18 110/68 12/21/16 13:55 20 12/21/16 13:45 56 116/79 12/21/16 13:30 65 123/78 12/21/16 13:21 18 12/21/16 13:15 68 122/81 12/21/16 13:00 61 117/71 12/21/16 12:45 73 107/75 12/21/16 12:40 16 12/21/16 12:31 78 99/72 Objective Remarks GENERAL: Well-nourished, well-developed patient. CARDIOVASCULAR: Regular rate and rhythm without murmurs, gallops, or rubs. RESPIRATORY: Breath sounds equal bilaterally. No accessory muscle use. ABDOMEN/GI: Abdomen soft, non-tender. Fundus: Firm, non-tender at umbilicus. GENITOURINARY: Light to moderate bleeding. EXTREMITIES: No cyanosis or edema, non-tender, without signs of DVT. Medications and IVs Current Medications Medications (Trade) Dose Ordered Sig/Tirso Route Start Time Stop Time Status Last Admin (NS Flush) 2 ml BID IV FLUSH 12/21/16 12:30 (NS Flush) 2 ml UNSCH PRN IV FLUSH 12/21/16 12:30 (Tylenol) 650 mg Q4H PRN PO 12/21/16 12:30 (Motrin) 600 mg Q6H PRN PO 12/21/16 12:30 12/21/16 23:33 (Americaine 20% Top Spr) 1 spray Q4H PRN TOPICAL 12/21/16 12:30 (Tucks Pads) 1 applic QID PRN TOPICAL 12/21/16 12:30 (Génesis-Colace) 2 tab Q12H PRN PO 12/21/16 12:30 (Ambien) 5 mg HS PRN PO 12/21/16 12:30 (Mag-Al Plus Susp Liq) 15 ml Q8H PRN PO 12/21/16 12:30 (Zofran Odt) 4 mg Q6H PRN PO 12/21/16 12:30 (Macrobid) 100 mg BIDPC PO 12/21/16 18:00 12/21/16 18:29 (Pepito Coyne MD R1) Assessment/Plan Assessment and Plan 26 yo female s/p , PPD 1 - AFVSS - UA suggestive of UTI, culture pending - Macrobid started 12/21 evening - Continue routine care - Motrin PRN pain - Encourage OOB - Pelvic rest x 6 wks - Contraception: Depo-Provera given - Anticipate D/C 12/23 (Pepito Coyne MD R1) Attending Attestation PPD #1 s/p Doing well Treated for UTI, asymptomatic Continue PP care and observation Patient seen and examined, d/w Dr. Coyne/Dr. Samuel (Myra Delaney MD) Pepito Coyne MD R1 Dec 22, 2016 08:44 Myra Delaney MD Dec 22, 2016 09:36
[2016-12-22] MEDS ORDERED: medroxyPROGESTERone ACETATE SUSP 150 MG/ML SYRINGE IM ONE (09:00)
[2016-12-22] MEDS ORDERED: IBUP-232 PO (09:58)
[2016-12-22] MEDS: IBUPROFEN 600 MG TAB PO PRN ×2 (10:31→20:38)
[2016-12-22] MEDS: NITROFURANTOIN MONOHYD MACROCR 100 MG CAP PO SCH (14:18)
[2016-12-22 19:42] VITALS: BP 105/65; PULSE 66; RESP 14; TEMP 98.1
[2016-12-23 08:00] VITALS: BP 116/77; PULSE 57; RESP 18; TEMP 98.3
--- NOTE | 2016-12-23 08:14 | HHI.OB ---
Subjective Post Day: 2 Remarks 26 year old female s/p NVD at 39 wks gestation, PPD 2. AFVSS. Patient reports she is feeling well. Bleeding is decreasing and pain is well- controlled. She is breast and formula feeding and bonding well with baby. Ambulating without difficulties. She is tolerating a diet without nausea or vomiting. She has not had a bowel movement. She has passed gas. Denies chest pain, dysuria, shortness of breath, or calf pain. Objective Vitals/I&O Vital Signs Date Time Temp Pulse Resp B/P Pulse Ox O2 Delivery O2 Flow Rate FiO2 12/23/16 08:00 98.3 12/23/16 08:00 57 18 116/77 12/22/16 19:42 98.1 66 14 105/65 Objective Remarks GENERAL: Well-nourished, well-developed patient. CARDIOVASCULAR: Regular rate and rhythm without murmurs, gallops, or rubs. RESPIRATORY: Breath sounds equal bilaterally. No accessory muscle use. ABDOMEN/GI: Abdomen soft, non-tender. Fundus: Firm, non-tender at umbilicus. GENITOURINARY: Light to moderate bleeding. EXTREMITIES: No cyanosis or edema, non-tender, without signs of DVT. Medications and IVs Current Medications Medications (Trade) Dose Ordered Sig/Tirso Route Start Time Stop Time Status Last Admin (NS Flush) 2 ml BID IV FLUSH 12/21/16 12:30 (NS Flush) 2 ml UNSCH PRN IV FLUSH 12/21/16 12:30 (Tylenol) 650 mg Q4H PRN PO 12/21/16 12:30 (Motrin) 600 mg Q6H PRN PO 12/21/16 12:30 12/22/16 20:38 (Americaine 20% Top Spr) 1 spray Q4H PRN TOPICAL 12/21/16 12:30 (Tucks Pads) 1 applic QID PRN TOPICAL 12/21/16 12:30 (Génesis-Colace) 2 tab Q12H PRN PO 12/21/16 12:30 (Ambien) 5 mg HS PRN PO 12/21/16 12:30 (Mag-Al Plus Susp Liq) 15 ml Q8H PRN PO 12/21/16 12:30 (Zofran Odt) 4 mg Q6H PRN PO 12/21/16 12:30 (Macrobid) 100 mg BIDPC PO 12/23/16 09:00 Assessment/Plan Assessment and Plan 26 yo female s/p , PPD 2 - AFVSS - UA suggestive of UTI, culture pending on 12/23/16 - Macrobid started 12/21 evening - will continue at discharge to complete 5 days of therapy - Continue routine care - Motrin PRN pain - Encourage OOB - Pelvic rest x 6 wks - Contraception: Depo-Provera given, patient would like a tubal ligation. Encouraged to discuss with OB provider after discharge - Anticipate D/C 12/23 Discussed with Elizabeth Lopez MD R1 Dec 23, 2016 08:14
[2016-12-23] MEDS ORDERED: NITROFURANTOIN MONOHYD MACROCR 100 MG CAP PO SCH (09:00)
[2016-12-23] MEDS: IBUPROFEN 600 MG TAB PO PRN (09:18)
--- NOTE | 2016-12-23 09:48 | HHI.DCPOC ---
Discharge Care Plan Diagnosis: (1) , delivered (2) Acute cystitis during in third trimester Report Symptoms to Your Doctor -Temperature above 100.5 degrees -Redness, of incision or excessive or foul smelling drainage -Unusual pain or calf pain -Increased vaginal bleeding -Painful or difficulty urinating -Feelings of extreme sadness or anxiety after 2 weeks Goals to Promote Your Health * To prevent worsening of your condition and complications * To maintain your health at the optimal level Directions to Meet Your Goals Take your medications as prescribed Follow your dietary instruction Follow activity as directed Ensure plenty of rest for recovery Drink fluids for hydration Keep your appointments as scheduled Take your immunizations and boosters as scheduled If your symptoms worsen call your PCP, if no PCP go to Urgent Care Center or Emergency Room Smoking is Dangerous to Your Health. Avoid second hand smoke Call the 24-hour crisis hotline for domestic abuse at Elizabeth Kirk MD R1 Dec 23, 2016 09:48
[2016-12-23] MEDS ORDERED: NITR100C4 PO (09:51)
== END 2016-12-23 14:58 | disposition home or self-care (01) | DRG 774 ==
LOC: HOBED 11:05 → H2EA 11:19 → H1EA 14:42
PROVIDERS: ADMIT Obstetrics & Gynecology; ATTEND Obstetrics & Gynecology
PROC: 10E0XZZ Delivery of Products of Conception, External Approach (ICD-10-PCS; principal; 2016-12-21)
DX: O34.219 Maternal care for unspecified type scar from previous cesarean delivery (principal); O75.3 Other infection during labor; O09.33 Supervision of pregnancy with insufficient antenatal care, third trimester; Z37.0 Single live birth; Z3A.39 39 weeks gestation of pregnancy
CPT/HCPCS: 80307; 81001; 85025; 87077; 87081; 87086; 87150; 87186; 87491; 87591; 88307; 90715; G0481; J1050

== ENCOUNTER 2017-07-15 20:57 | Inpatient (IN) | payer OTHER ==
[~2017-07-15] VITALS: Ht 152.4 cm; Wt 74.8 kg
[~2017-07-15 20:57] MED LIST changes: +IBUP-232 PO; +NITR100C4 PO; -SULF1TAB23 PO
[2017-07-15 20:59] VITALS: BP 158/81; PULSE 65; RESP 24; TEMP 98.3; O2SAT 98
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
[2017-07-15] MEDS ORDERED: ACETAMINOPHEN 500 MG CPLT PO ONE (21:45)
[2017-07-15 22:13] LABS: AUTOMATED NEUTROPHIL # 3.6 TH/MM3 (1.8-7.7); BASOPHIL % 0.5 % (0.0-2.0); EOSINOPHIL % 0.6 % (0.0-4.0); HEMATOCRIT 37.8 % (35.0-46.0); HEMOGLOBIN 12.7 GM/DL (11.6-15.3); LYMPH % 45.4 % (9.0-44.0); LYMPHOCYTE # 3.5 TH/MM3 (1.0-4.8); MEAN CELL VOLUME 81.1 FL (80.0-100.0); MEAN CORPUSCULAR HEMOGLOBIN 27.1 PG (27.0-34.0); MEAN CORPUSCULAR HGB CONC 33.5 % (32.0-36.0); MEAN PLATELET VOLUME 8.3 FL (7.0-11.0); MONO % 6.6 % (0.0-8.0); MONOCYTE # 0.5 TH/MM3 (0-0.9); NEUT % 46.9 % (16.0-70.0); PLATELET COUNT 276 TH/MM3 (150-450); RED BLOOD COUNT 4.66 MIL/MM3 (4.00-5.30); RED CELL DISTRIBUTION WIDTH 13.7 % (11.6-17.2); WHITE BLOOD COUNT 7.7 TH/MM3 (4.0-11.0)
[2017-07-15 22:37] LABS: ALBUMIN 3.9 GM/DL (3.4-5.0); AST (GOT) 10 U/L (15-37); BICARBONATE 25.7 MEQ/L (21.0-32.0); BLOOD UREA NITROGEN 11 MG/DL (7-18); CALCIUM 10.2 MG/DL (8.5-10.1); CHLORIDE 106 MEQ/L (98-107); CREATININE 0.77 MG/DL (0.50-1.00); GLOMERULAR FILTRATION RATE 109 ML/MIN (>89); GLUCOSE,RANDOM 101 MG/DL (74-106); SODIUM (NA) 138 MEQ/L (136-145)
[2017-07-15 22:38] LABS: ALT (GPT) 21 U/L (10-53)
[2017-07-15 22:47] LABS: ALKALINE PHOSPHATASE 131 U/L (45-117); TOTAL BILIRUBIN ADULT 0.2 MG/DL (0.2-1.0)
[2017-07-16 07:33] VITALS: BP 145/80; PULSE 45; RESP 24; TEMP 98.3; O2SAT 98
[2017-07-16 14:27] VITALS: BP 124/86; PULSE 66; RESP 18; TEMP 98; O2SAT 100
--- NOTE | 2017-07-16 15:15 | EKG ---
Date Performed: 07/15/2017 Time Performed: 21:29:26 PTAGE: 27 years EKG: Sinus Bradycardia When compared to previous tracing, heart rate has slowed. ABNORMAL RHYTHM ECG PREVIOUS TRACING : 03/01/2015 20.24 DOCTOR: Ian Caballero Interpretating Date/Time 07/16/2017 15:15:07
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
[2017-07-16] MEDS ORDERED: ACETAMINOPHEN 325 MG TAB PO PRN (16:30)
[2017-07-16] MEDS ORDERED: ALUMINUM/MAGNESIUM/SIMETH 30 ML CUP PO PRN (16:30)
[2017-07-16] MEDS ORDERED: MAGNESIUM HYDROXIDE SUSP 30 ML CUP PO PRN (16:30)
[2017-07-16] MEDS ORDERED: diphenhydrAMINE HCL 50 MG CAP PO PRN (16:30)
[2017-07-16 17:37] VITALS: BP 128/61; PULSE 62; RESP 17; TEMP 98; O2SAT 100
[2017-07-16 17:38] VITALS: BP 128/61; PULSE 62; RESP 17; TEMP 98; O2SAT 100
[2017-07-17 06:09] VITALS: BP 113/71; PULSE 67; RESP 16; TEMP 97.9; O2SAT 99
[2017-07-17 08:51] LABS: BICARBONATE 29.2 MEQ/L (21.0-32.0); BLOOD UREA NITROGEN 9 MG/DL (7-18); CALCIUM 9.7 MG/DL (8.5-10.1); CHLORIDE 104 MEQ/L (98-107); CREATININE 0.72 MG/DL (0.50-1.00); GLOMERULAR FILTRATION RATE 118 ML/MIN (>89); GLUCOSE,RANDOM 107 MG/DL (74-106); SODIUM (NA) 139 MEQ/L (136-145)
[2017-07-17 08:52] LABS: CHOLESTEROL 151 MG/DL (120-200)
[2017-07-17 08:54] LABS: CHOLESTEROL/ HDL RATIO 1.89 RATIO; HDL CHOLESTEROL 79.7 MG/DL (40.0-60.0); LDL CHOLESTEROL 55 MG/DL (0-99); TRIGLYCERIDES 81 MG/DL (42-150)
[2017-07-17] MEDS ORDERED: INFLUENZA VIRUS VACCINE (QUADRIVALENT) 0.5 ML SYR IM ONE (10:00)
[2017-07-17] MEDS ORDERED: BENZTROPINE MESYLATE 1 MG TAB PO PRN (11:15)
[2017-07-17] MEDS: FLUoxetine HCL 20 MG CAP PO SCH (11:15)
[2017-07-17] MEDS ORDERED: hydrOXYzine HCL 50 MG TAB PO PRN (11:15)
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
[2017-07-17 16:22] LABS: HEMOGLOBIN A1C 5.5 % (4.3-6.0)
[2017-07-17] MEDS: OLANZapine 5 MG TAB PO SCH (21:43)
[2017-07-17] MEDS: traZODone HCL 50 MG TAB PO PRN (21:43)
[2017-07-18 06:15] VITALS: BP 103/56; PULSE 77; RESP 16; TEMP 98.1; O2SAT 99
[2017-07-18] MEDS: FLUoxetine HCL 20 MG CAP PO SCH ×2 (09:22→22:09)
[2017-07-18 17:27] VITALS: BP 116/72; PULSE 100; RESP 16; TEMP 98.1; O2SAT 99
--- NOTE | 2017-07-18 17:31 | HHI.PYPN ---
Subjective Remarks Patient seen for follow-up, chart reviewed. Discussion with nursing staff reported that the patient noted to be visible on the unit, not endorsing AH or any thoughts of self injurious behavior. Patient was found lying on hospital bed, asleep but able to wake up for interview. Patient states feeling "good", reports sleeping well, continues with less depression and AH and feels medication is helpful. Currently denies SI or delusions at this time. Review of Systems Except as stated in HPI: all other systems reviewed are Neg Mental Status Examination Appearance: Appropriate Consciousness: Alert Orientation: x4 Motor Activity: Normal gait Speech: Hesitant, Slow Language: Adequate Fund of Knowledge: Poor Attention and Concentration: Easily Distracted Memory: Impaired Mood: Sad Affect: Sad Thought Process & Associations: Intact Thought Content: Hallucinations Hallucination Type: Auditory (command type, derogatory) Delusion Type: None Suicidal Ideation: Yes (denies today) Suicidal Plan: No Suicidal Intention: No Homicidal Ideation: No Homicidal Plan: No Homicidal Intention: No Insight: Fair Judgment: Adequate Results Vitals/IOs Vital Signs Date Time Temp Pulse Resp B/P (MAP) Pulse Ox O2 Delivery O2 Flow Rate FiO2 07/18/17 17:27 98.1 100 16 116/72 (87) 99 07/16/17 14:27 Room Air Assessment & Plan Problem List: (1) Psychosis ICD Codes: F29 - Unspecified psychosis not due to a substance or known physiological condition Status: Acute Assessment & Plan Patient with decreased depressed mood and suicidal ideations along with auditory hallucinations. Continue current treatment as patient appears to be responding. Continue monitor mood and behavior. Discharge planning in progress. Justification for Cont. Inpt. At risk for further decompensation if at lower level of care. Discharge Planning To be determined Problem Qualifiers (1) Psychosis: Qualified Codes: F20.9 - Schizophrenia, unspecified Jesús Shields MD Jul 18, 2017 17:31
[2017-07-18] MEDS: traZODone HCL 50 MG TAB PO PRN (22:09)
[2017-07-18] MEDS: OLANZapine 5 MG TAB PO SCH (22:09)
[2017-07-19 05:17] VITALS: BP 113/67; PULSE 65; RESP 16; TEMP 98.1; O2SAT 98
[2017-07-19] MEDS: FLUoxetine HCL 20 MG CAP PO SCH (10:33)
--- NOTE | 2017-07-19 15:54 | HHI.PYPN ---
Subjective Remarks Patient is here for follow, chart reviewed. Discussion nursing staff reported the patient has been noted to be visible on the unit with staff. Patient was found lying in hospital bed noted to be calm and cooperative. Patient states that she had been feeling "good" stating that she has been sleeping well, continues to report feeling depressed but less so today. Patient states that she has been having worsening auditory hallucinations and reported decreased suicide ideations at this time. Patient states that once she is better she will be discharged back to her mother and sisters residence. Patient during interview appeared to be somewhat internally preoccupied but denying any perception of service at time of interview. Review of Systems Except as stated in HPI: all other systems reviewed are Neg Mental Status Examination Appearance: Appropriate Consciousness: Alert Orientation: x4 Motor Activity: Normal gait Speech: Hesitant, Slow Language: Adequate Fund of Knowledge: Poor Attention and Concentration: Easily Distracted Memory: Impaired Mood: Sad Affect: Sad Thought Process & Associations: Intact Thought Content: Hallucinations Hallucination Type: Auditory (Denies today but appearing somewhat internally preoccupied) Delusion Type: None Suicidal Ideation: Yes (denies today) Suicidal Plan: No Suicidal Intention: No Homicidal Ideation: No Homicidal Plan: No Homicidal Intention: No Insight: Fair Judgment: Adequate Results Vitals/IOs Vital Signs Date Time Temp Pulse Resp B/P (MAP) Pulse Ox O2 Delivery O2 Flow Rate FiO2 07/19/17 05:17 98.1 65 16 113/67 (82) 98 07/16/17 14:27 Room Air Assessment & Plan Problem List: (1) Psychosis ICD Codes: F29 - Unspecified psychosis not due to a substance or known physiological condition Status: Acute Assessment & Plan Patient at this time reporting improved mood, continue to report feeling depressed along with vague suicidal ideations and denying any auditory hallucinations but noted to be somewhat internally preoccupied at times. Patient appears to be responding to treatment, we will continue current regimen for now. Continue to monitor mood and behavior. Collateral information from family to assess patient's baseline as well as for discharge planning. Discharge planning in progress Justification for Cont. Inpt. At risk for further decompensation if at lower level of care Discharge Planning Patient to return back to her residence once psychiatrically stable. Problem Qualifiers (1) Psychosis: Qualified Codes: F20.9 - Schizophrenia, unspecified Jesús Shields MD Jul 19, 2017 15:54
[2017-07-19] MEDS: OLANZapine 5 MG TAB PO SCH (21:16)
[2017-07-20 06:14] VITALS: BP 119/56; PULSE 83; RESP 16; TEMP 97.7; O2SAT 98
[2017-07-20] MEDS: FLUoxetine HCL 20 MG CAP PO SCH (09:10)
--- NOTE | 2017-07-20 15:28 | HHI.PYPN ---
Subjective Remarks Pt seen and discussed with staff. She has been isolating self to her room. AH persists, but she reports some decrease in frequency. No self injurious behaviors today. No SI/HI. She has been compliant wt medications and denies side effecdts. Mental Status Examination Appearance: Appropriate Consciousness: Alert Orientation: x4 Motor Activity: Normal gait Speech: Hesitant, Slow Language: Adequate Fund of Knowledge: Poor Attention and Concentration: Easily Distracted Memory: Unremarkable Mood: Sad Affect: Sad Thought Process & Associations: Intact Thought Content: Hallucinations Hallucination Type: Auditory Delusion Type: None Suicidal Ideation: No (denies today) Suicidal Plan: No Suicidal Intention: No Homicidal Ideation: No Homicidal Plan: No Homicidal Intention: No Insight: Fair Judgment: Impulsive Results Vitals/IOs Vital Signs Date Time Temp Pulse Resp B/P (MAP) Pulse Ox O2 Delivery O2 Flow Rate FiO2 07/20/17 06:14 97.7 83 16 119/56 (77) 98 07/16/17 14:27 Room Air Assessment & Plan Problem List: (1) Psychosis ICD Codes: F29 - Unspecified psychosis not due to a substance or known physiological condition Status: Acute Assessment & Plan PT improving. Continue current tx plan. Estimated LOS: days Justification for Cont. Inpt. risk of decompensation Problem Qualifiers (1) Psychosis: Qualified Codes: F20.9 - Schizophrenia, unspecified Yuli Crawley MD Jul 20, 2017 15:28
[2017-07-20 18:00] VITALS: BP 118/58; PULSE 82; RESP 18; TEMP 98.1; O2SAT 99
[2017-07-20] MEDS: OLANZapine 5 MG TAB PO SCH (21:00)
[2017-07-21 05:25] VITALS: BP 108/65; PULSE 90; RESP 17; TEMP 98.2
[2017-07-21 06:17] VITALS: BP 108/65; PULSE 90; RESP 17; TEMP 98.2
[2017-07-21] MEDS: FLUoxetine HCL 20 MG CAP PO SCH (08:47)
--- NOTE | 2017-07-21 13:55 | HHI.PYPN ---
Subjective Remarks Pt seen and discussed with staff. She reports that she continues to hear voices but they are "not bad voices". She is compliant with medications and is cooperative with care. No SI/HI Mental Status Examination Appearance: Appropriate Consciousness: Alert Orientation: x4 Motor Activity: Normal gait Speech: Hesitant, Slow Language: Adequate Fund of Knowledge: Poor Attention and Concentration: Easily Distracted Memory: Unremarkable Mood: Sad Affect: Sad Thought Process & Associations: Intact Thought Content: Hallucinations Hallucination Type: Auditory Delusion Type: None Suicidal Ideation: No (denies today) Suicidal Plan: No Suicidal Intention: No Homicidal Ideation: No Homicidal Plan: No Homicidal Intention: No Insight: Fair Judgment: Impulsive Results Vitals/IOs Vital Signs Date Time Temp Pulse Resp B/P (MAP) Pulse Ox O2 Delivery O2 Flow Rate FiO2 07/21/17 06:17 98.2 90 17 108/65 (79) 07/20/17 18:00 99 Intake and Output 07/21/17 07/21/17 07/22/17 08:00 16:00 00:00 Intake Total 240 ml 240 ml Balance 240 ml 240 ml Assessment & Plan Problem List: (1) Psychosis ICD Codes: F29 - Unspecified psychosis not due to a substance or known physiological condition Status: Acute Assessment & Plan Pt improving. Continue current tx plan. Estimated LOS: days Justification for Cont. Inpt. impairments in reality testing Problem Qualifiers (1) Psychosis: Qualified Codes: F20.9 - Schizophrenia, unspecified Yuli Crawley MD Jul 21, 2017 13:55
[2017-07-21 18:48] VITALS: BP 124/76; PULSE 84; RESP 18; TEMP 98.1; O2SAT 97
[2017-07-21] MEDS: OLANZapine 5 MG TAB PO SCH (20:35)
[2017-07-22 06:08] VITALS: BP 95/59; PULSE 91; RESP 16; TEMP 98; O2SAT 96
[2017-07-22] MEDS: FLUoxetine HCL 20 MG CAP PO SCH (08:32)
[2017-07-22] MEDS ORDERED: OLAN5TAB PO (13:51)
[2017-07-22] MEDS ORDERED: FLUO20CA12 PO (13:51)
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
== END 2017-07-22 16:30 | disposition home or self-care (01) | DRG 885 ==
LOC: NEPD 20:57 → NEDA 07-16 16:27 → H260 07-16 16:34
PROVIDERS: ADMIT Student in an Organized Health Care Education/Training Program; ATTEND Student in an Organized Health Care Education/Training Program
DX: F20.9 Schizophrenia, unspecified (principal); R07.89 Other chest pain; Z81.8 Family history of other mental and behavioral disorders; Z62.810 Personal history of physical and sexual abuse in childhood; Z23 Encounter for immunization
CPT/HCPCS: 80048; 80053; 80061; 80307; 83036; 84443; 84703; 85025; 90686; 93005; 99285; Q2038